=== PATIENT | male | born 1935 | race Caucasian/White ===

== ENCOUNTER 2018-11-18 16:22 | Inpatient (IN) | payer MEDICARE, OTHER, SELFPAY ==
[2018-11-18 16:30] VITALS: BP 146/79; PULSE 75; RESP 16; TEMP 36.7; O2SAT 99; BMI 28.3
--- NOTE | 2018-11-18 16:58 | PCM.HP.STD ---
History of Present Illness Date of Admission: 11/18/18 Chief Complaint: Right obstructing ureteral calculi The patient is a 83 year old male who presented to [facility] with severe right flank pain dehydration also was found to have to require oxygen, I was consulted by the hospital and accepted transfer to [facility] for continued care, he had a CAT scan done demonstrating obstructing stone in the mid right ureter about 4 mm in size causing obstruction and hydronephrosis and pain. He also has a mild dilation of the aorta on CAT scan. He has mild right hydronephrosis. His creatinine was 1.2, but it was reported that he had low urine output at [facility]. Will monitor urine output on admission here. We will also consult hospitalist regarding his oxygenation needs and workup for this. Past Medical History Allergies No Known Allergies Allergy (Verified 11/18/18 16:29) Home Medications: Ambulatory Orders Medication Instructions Recorded Aspirin 325 mg PO DAILY@0800 11/18/18 Folic Acid 1 mg PO DAILY 11/18/18 Krill Oil 500 mg PO DAILY 11/18/18 Lisinopril [Zestril] 5 mg PO DAILY 11/18/18 Multivitamin with Minerals 1 each PO DAILY 11/18/18 [Multiple Vitamin] Surgical History: noncontributory Psychiatric History: No pertinent psych hx Lives: With Family Smoking Status: Never smoker Tobacco Use: Non-smoker Alcohol: None Drugs: None - *Family History Maternal History Items: No pertinent history Review of Systems Constitutional: Denies: Chills, Fever, Weight Change HEENT: Denies: Head Aches, Sinus Congestion, Sinus Drainage Cardiovascular: Denies: Chest Pain, Palpitations Respiratory: Reports: - - Needing oxygen. Denies: Shortness of breath at rest, Sputum production Gastrointestinal: Reports: Abdominal Pain, - - Right abdominal pain. Denies: Nausea, Vomiting Genitourinary: Denies: Dysuria Musculoskeletal: Denies: Joint Pain, Joint Tenderness Skin: Denies: Rash, Wounds Neurological: Denies: Numbness, Tingling, Focal weakness Psychiatric: Denies: Anxiety, Depression, Homicidal Ideations, Suicidal Ideations Hematologic/ Lymphatic: Denies: Easy Bruising, Easy Bleeding VTE Information - Inpt Only VTE Present on Admission: No VTE Mechan Device Prophylaxis: SCD's - Physical Exam General: Alert, Oriented x3, Cooperative HEENT: Atraumatic, PERRLA, EOMI, Normocephalic Neck: Supple, No JVD, Negative Carotid Bruits Lungs: Clear to auscultation, Normal air movement Cardiovascular: Regular rate, No murmurs Abdomen: Bowel Sounds Present, Soft, Non Tender Extremities: No edema, Capillary Refill Less than 3 Seconds Skin: No rashes, No breakdown Musculoskeletal: No Tenderness to Palpation of Joints or Extremities Neurological: Cranial nerves II-XII grossly intact Psych/Mental Status: Normal Affect, Appropriate Assessment/Plan 83-year-old male with obstructing right mid ureteral calculi 4 mm in size with mild right hydronephrosis, also requiring oxygenation currently stable on O2 supplementation. Will consult hospitalist. Plan to taken to surgery tomorrow for stent placement n.p.o. at midnight will do consent, regular diet for now.
[2018-11-18 17:01] VITALS: BMI 28.3
--- NOTE | 2018-11-18 17:01 | HP.PCM_ITS ---
History of Present Illness Date of Admission: 11/18/18 Chief Complaint: Right obstructing ureteral calculi The patient is a 83 year old male who presented to [facility] with severe right flank pain dehydration also was found to have to require oxygen, I was consulted by the hospital and accepted transfer to [facility] for continued care, he had a CAT scan done demonstrating obstructing stone in the mid right ureter about 4 mm in size causing obstruction and hydronephrosis and pain. He also has a mild dilation of the aorta on CAT scan. He has mild right hydronephrosis. His creatinine was 1.2, but it was reported that he had low urine output at [facility]. Will monitor urine output on admission here. We will also consult hospitalist regarding his oxygenation needs and workup for this. Past Medical History Allergies No Known Allergies Allergy (Verified 11/18/18 16:29) Home Medications: Ambulatory Orders Medication Instructions Recorded Aspirin 325 mg PO DAILY@0800 11/18/18 Folic Acid 1 mg PO DAILY 11/18/18 Krill Oil 500 mg PO DAILY 11/18/18 Lisinopril [Zestril] 5 mg PO DAILY 11/18/18 Multivitamin with Minerals 1 each PO DAILY 11/18/18 [Multiple Vitamin] Surgical History: noncontributory Psychiatric History: No pertinent psych hx Lives: With Family Smoking Status: Never smoker Tobacco Use: Non-smoker Alcohol: None Drugs: None - *Family History Maternal History Items: No pertinent history Review of Systems Constitutional: Denies: Chills, Fever, Weight Change HEENT: Denies: Head Aches, Sinus Congestion, Sinus Drainage Cardiovascular: Denies: Chest Pain, Palpitations Respiratory: Reports: - - Needing oxygen. Denies: Shortness of breath at rest, Sputum production Gastrointestinal: Reports: Abdominal Pain, - - Right abdominal pain. Denies: Nausea, Vomiting Genitourinary: Denies: Dysuria Musculoskeletal: Denies: Joint Pain, Joint Tenderness Skin: Denies: Rash, Wounds Neurological: Denies: Numbness, Tingling, Focal weakness Psychiatric: Denies: Anxiety, Depression, Homicidal Ideations, Suicidal Ideations Hematologic/ Lymphatic: Denies: Easy Bruising, Easy Bleeding VTE Information - Inpt Only VTE Present on Admission: No VTE Mechan Device Prophylaxis: SCD's - Physical Exam General: Alert, Oriented x3, Cooperative HEENT: Atraumatic, PERRLA, EOMI, Normocephalic Neck: Supple, No JVD, Negative Carotid Bruits Lungs: Clear to auscultation, Normal air movement Cardiovascular: Regular rate, No murmurs Abdomen: Bowel Sounds Present, Soft, Non Tender Extremities: No edema, Capillary Refill Less than 3 Seconds Skin: No rashes, No breakdown Musculoskeletal: No Tenderness to Palpation of Joints or Extremities Neurological: Cranial nerves II-XII grossly intact Psych/Mental Status: Normal Affect, Appropriate Assessment/Plan 83-year-old male with obstructing right mid ureteral calculi 4 mm in size with mild right hydronephrosis, also requiring oxygenation currently stable on O2 supplementation. Will consult hospitalist. Plan to taken to surgery tomorrow for stent placement n.p.o. at midnight will do consent, regular diet for now.
[2018-11-18] MEDS: 0.9% Normal Saline 1,000 ML 75 ML IV (17:44)
--- NOTE | 2018-11-18 17:54 | PCM.PN.HOSP ---
Subjective: Consult requested by Dr. Song for medical clearance. Is a 83-year-old white male presented to outside hospital with right flank pain. Patient was noted to have a obstructing stone in the right ureter. The stone was measured about 4 mm. Patient did require oxygen at the facility but apparently this was after the patient had received morphine, Percocet and fentanyl. Currently patient feels well and denies any shortness of breath at this time. At home, patient has a fair performance status. He does get short of breath going upstairs but that is been unchanged. Denies any chest pain. Vitals/I&O's: Vital Signs Temp Pulse Resp BP Pulse Ox 36.7 C 75 16 146/79 H 99 11/18/18 16:30 11/18/18 16:30 11/18/18 16:30 11/18/18 16:30 11/18/18 16:30 Oxygen Flow Rate (L/min) 3 Oxygen Delivery Method Nasal Cannula Weight: 74.888 kg Body Mass Index (BMI) 28.3 General: Alert, No apparent distress HEENT: Atraumatic, Normocephalic Oral: Moist Mucosa, No Gingival or Mucosal Lesions/ Ulcerations Neck: No Nodes, Thyroid Normal Size and Texture Lungs: Normal air movement, - - Bibasilar crackles Cardiovascular: Regular rate, Regular Rhythm, Normal S1, Normal S2 Abdomen: Bowel Sounds Present, Soft, Non Tender, Non-Distended, No Hepato-splenomegaly Extremities: No edema, No Calf Tenderness Skin: No rashes, No breakdown Psych/Mental Status: Normal Affect, Appropriate Current Medications Acetaminophen (Tylenol) 500 mg PO Q4H PRN PRN PRN Reason: Pain/Headache Docusate Sodium (Colace) 100 mg PO BID [facility] Folic Acid (Folic Acid) 1 mg PO DAILYCM [facility] Sodium Chloride () 1,000 mls @ 75 mls/hr IV .[id number] [facility] Last Admin: 11/18/18 17:44 Dose: 75 mls/hr Cefazolin Sodium () 1 gm in 50 mls @ 150 mls/hr IV Q8 NICHOLAS Stop: 11/19/18 06:19 Ketorolac Tromethamine (Toradol) 15 mg IV Q6H PRN PRN PRN Reason: pain Stop: 11/20/18 17:04 Lisinopril (Zestril) 5 mg PO DAILY [facility] Multivitamins/Minerals (Multivitamin With Minerals) 1 tablet PO DAILY@0800 [facility] Medical Necessity - Tobacco Use Smoking Status: Never smoker Tobacco Use: Non-smoker Assessment/Plan 1. Respiratory distress, acute: Is likely iatrogenic due to the narcotics he received at the outside hospital Currently, the patient is hemodynamically stable and in no respiratory distress. 2. Right ureteral stone Plan is for the patient tomorrow to have a stent placed by urology. Patient has a fairly good performance status able to engage in greater than 4 METS of activity. Therefore, I feel the patient is low risk to proceed with a low risk procedure tomorrow 3. COPD Stable at this time 4. Hypertension Stable at this time Continue with lisinopril 5. DVT prophylaxis: SCDs Thank you for the consult. The hospitalist team will follow up during the patient's hospitalization. Code Visit Inpatient E&M: 25036 Subs Hosp L2
--- NOTE | 2018-11-18 17:59 | PN_ITS ---
Subjective: Consult requested by Dr. Song for medical clearance. Is a 83-year-old white male presented to outside hospital with right flank pain. Patient was noted to have a obstructing stone in the right ureter. The stone was measured about 4 mm. Patient did require oxygen at the facility but apparently this was after the patient had received morphine, Percocet and fentanyl. Currently patient feels well and denies any shortness of breath at this time. At home, patient has a fair performance status. He does get short of breath going upstairs but that is been unchanged. Denies any chest pain. Vitals/I&O's: Vital Signs Temp Pulse Resp BP Pulse Ox 36.7 C 75 16 146/79 H 99 11/18/18 16:30 11/18/18 16:30 11/18/18 16:30 11/18/18 16:30 11/18/18 16:30 Oxygen Flow Rate (L/min) 3 Oxygen Delivery Method Nasal Cannula Weight: 74.888 kg Body Mass Index (BMI) 28.3 General: Alert, No apparent distress HEENT: Atraumatic, Normocephalic Oral: Moist Mucosa, No Gingival or Mucosal Lesions/ Ulcerations Neck: No Nodes, Thyroid Normal Size and Texture Lungs: Normal air movement, - - Bibasilar crackles Cardiovascular: Regular rate, Regular Rhythm, Normal S1, Normal S2 Abdomen: Bowel Sounds Present, Soft, Non Tender, Non-Distended, No Hepato- splenomegaly Extremities: No edema, No Calf Tenderness Skin: No rashes, No breakdown Psych/Mental Status: Normal Affect, Appropriate Current Medications Acetaminophen (Tylenol) 500 mg PO Q4H PRN PRN PRN Reason: Pain/Headache Docusate Sodium (Colace) 100 mg PO BID [facility] Folic Acid (Folic Acid) 1 mg PO DAILYCM [facility] Sodium Chloride () 1,000 mls @ 75 mls/hr IV .[id number] [facility] Last Admin: 11/18/18 17:44 Dose: 75 mls/hr Cefazolin Sodium () 1 gm in 50 mls @ 150 mls/hr IV Q8 NICHOLAS Stop: 11/19/18 06:19 Ketorolac Tromethamine (Toradol) 15 mg IV Q6H PRN PRN PRN Reason: pain Stop: 11/20/18 17:04 Lisinopril (Zestril) 5 mg PO DAILY [facility] Multivitamins/Minerals (Multivitamin With Minerals) 1 tablet PO DAILY@0800 [facility] Medical Necessity - Tobacco Use Smoking Status: Never smoker Tobacco Use: Non-smoker Assessment/Plan 1. Respiratory distress, acute: * Is likely iatrogenic due to the narcotics he received at the outside hospital * Currently, the patient is hemodynamically stable and in no respiratory distress. 2. Right ureteral stone * Plan is for the patient tomorrow to have a stent placed by urology. * Patient has a fairly good performance status able to engage in greater than 4 METS of activity. * Therefore, I feel the patient is low risk to proceed with a low risk procedure tomorrow 3. COPD * Stable at this time 4. Hypertension * Stable at this time * Continue with lisinopril 5. DVT prophylaxis: SCDs Thank you for the consult. The hospitalist team will follow up during the patient's hospitalization. Code Visit Inpatient E&M: 45034 Subs Hosp L2
[2018-11-18 19:30] VITALS: O2SAT 93
[2018-11-18 22:00] VITALS: BP 126/55; PULSE 73; RESP 18; TEMP 36.7; O2SAT 94
[2018-11-18 22:10] VITALS: PULSE 73; RESP 18; O2SAT 94
[2018-11-18] MEDS: Cefazolin 1 GM/50 ML BAG IV (22:10)
[2018-11-18] MEDS: 0.9% NaCl Peripheral Flush Adult/Peds IV (22:11)
[2018-11-18] MEDS: Docusate Sodium 100 MG Capsule PO (22:20)
[2018-11-19] VITALS (11 sets, daily range): BP systolic 110–141; BP diastolic 59–75; PULSE 55–68; RESP 16–18; TEMP 36.7–37; O2SAT 93–98; BMI 28.3
[2018-11-19] MEDS: Ketorolac 15 MG/ML Vial IV (02:03)
--- NOTE | 2018-11-19 06:00 | EKG12_ITS ---
Test Reason : PRE-OP Blood Pressure : / mmHG Vent. Rate : 063 BPM Atrial Rate : 063 BPM P-R Int : 190 ms QRS Dur : 096 ms QT Int : 402 ms P-R-T Axes : 009 -17 000 degrees QTc Int : 411 ms Normal sinus rhythm Normal ECG Confirmed by IZABEL CAMARA, DOMINGO ([id number]), medical editor BHAVESH JAQUEZ ([id number]) on 11/28/2018 11:58:36 AM Referred By: Francisco Song Confirmed By:DOMINGO PAIZ MD
[2018-11-19] MEDS: Cefazolin 1 GM/50 ML BAG IV (06:08)
[2018-11-19] MEDS: 0.9% Normal Saline 1,000 ML 75 ML IV (06:09)
[2018-11-19 07:06] LABS: Absolute Lymphocyte Count 0.58 X10^3/ul (0.83-4.51); Absolute Neutrophil Count 4.8 X10^3/uL (2.0-7.7); Basophil# 0.01 X10^3/uL; Basophil% 0.2 % (0-1); Eosinophil# 0.04 X10^3/uL; Eosinophils% 0.7 % (0-5); Hematocrit 34.7 % (40-54); Hemoglobin 11.4 g/dl (13.0-16.5); Lymphocyte # 0.58 X10^3/ul (4.0); Lymphocyte % 9.8 % (19-41); Mean Corp Hgb Conc 32.9 g/gl (32-36); Mean Corpuscular Hgb 29.2 pg (27.0-32.0); Mean Corpuscular Volume 88.7 fL (80-94); Mean Platelet Vol. 9.7 fl (6.2-12.0); Monocyte# 0.51 X10^3/uL; Monocyte% 8.6 % (0-10); Neutrophil # 4.79 X10^3/uL (2.7-7.7); Neutrophil % 80.7 % (47-70); Platelet Count 179 K/mm3 (150-450); RBC Distribution Width CV 13.8 % (11.6-14.6); RBC Distribution Width SD 43.8 fl (35.1-43.9); Red Blood Count 3.91 M/mm3 (4.6-6.2); White Blood Count 5.9 K/mm3 (4.4-11.0)
[2018-11-19 07:07] LABS: Anion Gap 6 (5-15); BUN 23 mg/dL (7-18); BUN/Creat Ratio 17.7 RATIO (10-20); Chloride 106 mmol/L (98-107); Differential Indicated SCAN CRITERIA MET; EST Glomerular Filtration Rate 56 mL/min (>60); Est Glom Filt Rate - Afr Amer 68 mL/min (>60); Estimated Creatinine Clearance 36.05 ml/min; Glucose 106 mg/dL (74-106); POSITIVE COUNT NO; POSITIVE DIFFERENTIAL YES; POSITIVE MORPHOLOGY NO; Potassium 4.3 mmol/L (3.5-5.1); Sodium Level 139 mmol/L (136-145)
[2018-11-19 07:51] LABS: Hemoglobin A1c 6.3 % (4.2-6.3)
--- NOTE | 2018-11-19 08:02 | NURSING ---
report called and pt transported down to surgery at this time via bed
[2018-11-19] MEDS: Lidocaine Jelly 2% 20 ML Syringe (URO-JET) 20 APPLIC (08:39)
--- NOTE | 2018-11-19 08:44 | PCM.OPRPT ---
Report of Operation Date of Procedure: 11/19/18 Pre-Operative Diagnosis: Right ureteral calculi causing obstruction Post-Operative Diagnosis: The same Surgery/Procedure Performed:: Cystoscopy and right stent placement Description of Surgical Findings:: 83-year-old male presented to the hospital as a transfer from an outside facility with obstructing stone and shortness of breath requiring oxygen. He is being evaluated by medical service for his oxygen requirements. Today when taken to surgery place a stent on the right side to alleviate the obstruction. The urine has been sent for culture. 83-year-old male taken back to the operating room with smooth induction of MAC local he was placed in dorsolithotomy position the penis testicles are prepped and draped in usual sterile fashion, placed lidocaine jelly into the urethra, I then went into the bladder with a 21 Martiniquais cystoscopy urethroscope the entire length of the urethra is normal the prostate was normal inside the bladder was normal trigone was normal, identified the right ureteral orifice cannulated this with a wire advanced a wire up into the kidney and then over the wire place a stent 6 Martiniquais by 26 cm stent once stent was in good position and pulled the wire to the stent coiled in the kidney and bladder good position I then drained the bladder and the patient's anesthetic is being reversed. Type of Anesthesia:: General Drains: STENT RIGHT - Admit VTE Documentation VTE Present on Admission: No VTE Mechan Device Prophylaxis: SCD's
--- NOTE | 2018-11-19 09:16 | PCA ---
pt off floor
--- NOTE | 2018-11-19 09:43 | PN_ITS ---
Subjective: Patient was admitted with right-sided ureteric colic pain. Was found to have proximal ureteric calculus 4 mm. Patient did not had any fever or chills. No tachycardia or tachypnea. Patient not hypoxic. Patient had right wrist extension after that he is pain-free. Vitals/I&O's: Vital Signs Temp Pulse Resp BP Pulse Ox 98.1 F 64 16 122/59 H 95 11/19/18 09:10 11/19/18 09:10 11/19/18 09:10 11/19/18 09:10 11/19/18 09:10 Oxygen Flow Rate (L/min) 2 Oxygen Delivery Method Room Air Weight: 165 lb 1.6 oz Body Mass Index (BMI) 28.3 Intake and Output for Last 24 Hours 11/17/18 11/18/18 11/19/18 23:59 23:59 23:59 Intake Total 1711 / 1711 Output Total 875 / 875 Balance 836 / 836 General: Alert, Oriented x3, Cooperative HEENT: Atraumatic, PERRLA, EOMI, Normocephalic Neck: Supple, No JVD, Negative Carotid Bruits Lungs: Clear to auscultation, No rhonchi, No wheeze, No rales, Diminished - Air entry is diminished probably chronic from COPD Cardiovascular: Regular rate, Regular Rhythm, Normal S1, Normal S2, No murmurs Abdomen: Bowel Sounds Present, Soft, Non Tender Extremities: No edema, Capillary Refill Less than 3 Seconds Skin: No rashes, No breakdown Musculoskeletal: No Tenderness to Palpation of Joints or Extremities Neurological: Cranial nerves II-XII grossly intact Psych/Mental Status: Normal Affect, Appropriate Laboratory Results 11/19/18 06:26: Sodium 139, Potassium 4.3, Chloride 106, Carbon Dioxide 27.0, Anion Gap 6, BUN 23 H, Creatinine 1.30, Estim Creat Clear Calc 36.05, Est GFR (MDRD) Af Amer 68, Est GFR (MDRD) Non-Af 56 L, BUN/Creatinine Ratio 17.7, Glucose 106, Calcium 8.0 L 11/19/18 06:26: WBC 5.9, RBC 3.91 L, Hgb 11.4 L, Hct 34.7 L, MCV 88.7, MCH 29.2, MCHC 32.9, RDW 13.8, RDW Differential 43.8, Plt Count 179, MPV 9.7, Immature Gran % (Auto) 0.000, Neut % (Auto) 80.7 H, Lymph % (Auto) 9.8 L, Motley % (Auto) 8.6, Eos % (Auto) 0.7, Baso % (Auto) 0.2, Absolute Neuts (auto) 4.8, Absolute Lymphs (auto) 0.58 L, Total Counted Not Reportable 11/19/18 06:26: Hemoglobin A1c 6.3 Current Medications Acetaminophen (Tylenol) 500 mg PO Q4H PRN PRN PRN Reason: Pain/Headache Docusate Sodium (Colace) 100 mg PO BID [facility] Last Admin: 11/18/18 22:20 Dose: 100 mg Folic Acid (Folic Acid) 1 mg PO DAILYCM [facility] Sodium Chloride () 1,000 mls @ 35 mls/hr IV .[id number] [facility] Ketorolac Tromethamine (Toradol) 15 mg IV Q6H PRN PRN PRN Reason: pain Stop: 11/20/18 17:04 Last Admin: 11/19/18 02:03 Dose: 15 mg Lisinopril (Zestril) 5 mg PO DAILY [facility] Multivitamins/Minerals (Multivitamin With Minerals) 1 tablet PO DAILY@0800 [facility] Sodium Chloride () 5 - 15 ml IV UD PRN PRN Reason: SALINE FLUSH Last Admin: 11/18/18 22:11 Dose: 10 ml Medical Necessity - Tobacco Use Smoking Status: Never smoker Tobacco Use: Non-smoker Assessment/Plan This 83-year-old male was admitted with right flank pain radiating to groin. Found to have obstructive stone in the right ureter 4 mm in size. Patient pain was controlled. Patient initially had mild respiratory distress and did require oxygen, 2-3 L/min after he received morphine, Percocet and fentanyl. Currently pulse ox 93% on room air. Hemodynamically stable. Hypoxia corrected and resolved. Patient had cystoscopy and RIGHT URETERIC stent placed for right ureteral stone. COPD is stable . Blood pressure is controlled. Patient is being discharged on Cipro 500 mg twice daily for 3 more days. Labs reviewed and essentially on acceptable limit Follow with PCP in 1-[address] Song as scheduled. Code Visit Inpatient E&M: 62717 Subs Hosp L2
[2018-11-19] MEDS: Lisinopril 5 MG Tablet PO (11:45)
[2018-11-19] MEDS: Multivitamins,Ther W-Minerals Tablet 1 TABLET PO (11:45)
[2018-11-19] MEDS: Folic Acid 1 MG Tablet PO (11:45)
[2018-11-19] MEDS: Docusate Sodium 100 MG Capsule PO (11:45)
--- NOTE | 2018-11-19 12:37 | DCINST_ITS ---
Discharge Diet: Light diet - advance as tolerated Discharge Activity: Return to Normal Activity Call your doctor if your incision/area has: Continuous Slow Oozing, Sudden Increased Bleeding, Increased Pain/ Swelling, Increased Redness, Foul Smelling Discharge, Swelling at the incision site Call your doctor if you observe: Fever of 101 or Higher Allergies/Adverse Reactions: Allergies No Known Allergies Allergy (Verified 11/18/18 16:29) Medications to take at Discharge Aspirin 325 mg PO DAILY@0800 11/18/18 Folic Acid 1 mg PO DAILY 11/18/18 Krill Oil 500 mg PO DAILY 11/18/18 Lisinopril [Zestril] 5 mg PO DAILY 11/18/18 Multivitamin with Minerals [Multiple Vitamin] 1 each PO DAILY 11/18/18 Ciprofloxacin [Cipro] 500 mg PO BID #6 tablet 11/19/18 Ibuprofen 600 mg PO Q6H PRN PRN #14 tablet 11/19/18 The following prescriptions were given: Ibuprofen 600 mg PO Q6H PRN PRN #14 tablet PRN Reason: Pain Ciprofloxacin [Cipro] 500 mg PO BID #6 tablet Primary Care Physician: Care Physician,No Primary [Primary Care Provider] - Test Results: Test results from this visit will be discussed in further detail at your follow- up appointment, if applicable. Please Follow Up With: Francisco Song MD When: please call to make an appointment.
== END 2018-11-19 14:55 | disposition home or self-care (01) | DRG 661 ==
PROVIDERS: Anesthesiology; Admitting Provider Urology; Referring Provider Urology; Visit Provider Urology
PROC: 0T768DZ Dilation of Right Ureter with Intraluminal Device, Via Natural or Artificial Opening Endoscopic (ICD-10-PCS; principal; 2018-11-19 08:20)
DX: N13.2 Hydronephrosis with renal and ureteral calculous obstruction (principal); R06.03 Acute respiratory distress; I10 Essential (primary) hypertension; R09.02 Hypoxemia
CPT/HCPCS: 36415; 76000; 80048; 83036; 85025; 87086; 87088; 93005; J7030; A4216; C1769; C2617

== ENCOUNTER → 2019-01-03 | Outpatient (CLI) | payer MEDICARE, OTHER, SELFPAY ==
[2018-11-19 07:42] VITALS: BMI 28.3
--- NOTE | 2019-01-03 10:36 | CT_ITS ---
STUDY: CT ABDOMEN AND PELVIS WITHOUT CONTRAST REASON FOR EXAM: Male, 83 years old. History of renal stone. RADIATION DOSAGE (If Supplied By Facility): CTDIvol = ( 8.84 ) mGy, DLP = ( 468.28 ) mGycm TECHNIQUE: Transaxial images were obtained from the dome of the diaphragm to the symphysis pubis without oral contrast, and without intravenous contrast. Sagittal and coronal images were reconstructed. Individualized dose optimization techniques were used for this CT. COMPARISON: None. FINDINGS: There are small bilateral pleural effusions. There is a 4 cm x 1.9 cm soft tissue density in the posterior segment of the left lower lobe. This is superimposed on bibasilar scarring. The visualized portions of the heart are within normal limits. Normal liver. Normal gallbladder and extrahepatic biliary system. Normal spleen. Normal pancreas. Normal bilateral adrenal glands. Mild degree of right hydronephrosis and hydroureter. A right-sided double-J stent catheter is seen within the right ureter down to the bladder. There is evidence of a right perinephric and ureteric stranding. A punctate calcification is seen in the midportion of the left kidney. Normal visualized stomach. Normal small intestine. Normal colon. There are surgical clips in the region of the appendix consistent with a prior appendectomy. There is diffuse atherosclerotic calcification of the abdominal aorta and its major visceral branches. There is evidence of a fusiform infrarenal abdominal aortic aneurysm with a transverse dimension of 4.8 cm. There is an IVC filter in place. Normal retroperitoneum. Normal urinary bladder. There are prostatic calcifications. There is a right-sided inguinal hernia containing adipose tissue. There are diffuse degenerative changes of the visualized lumbar spine. CT/Abdomen/Pelvis without Cont IMPRESSION: Small bilateral pleural effusions. Soft tissue mass in the left lower lobe superimposed on scarring. Mild right hydronephrosis and hydroureter with a right-sided double-J stent catheter in place. Fusiform infrarenal abdominal aortic aneurysm with a transverse dimension of 4.8 cm. Electronically Signed: Sánchez Pagan, at 11:20 EDT , Service support ,
== END | disposition home or self-care (01) ==
LOC: CT 10:35
PROVIDERS: Family Provider Family Medicine; PCP Family Medicine; Referring Provider Urology; Visit Provider Urology
DX: N20.0 Calculus of kidney (principal)
CPT/HCPCS: 74176

== ENCOUNTER 2021-06-17 10:43 | Day surgery (SDC) | payer MEDICARE, OTHER, SELFPAY ==
--- NOTE | 2021-06-13 16:18 | EKG12_ITS ---
Test Reason : PRE-OP Blood Pressure : / mmHG Vent. Rate : 068 BPM Atrial Rate : 068 BPM P-R Int : 186 ms QRS Dur : 094 ms QT Int : 400 ms P-R-T Axes : 024 -28 017 degrees QTc Int : 425 ms Normal sinus rhythm Normal ECG Confirmed by SUSANA CAMARA, MARIAM ([id number]), editor house organ BHAVESH JAQUEZ ([id number]) on 06/17/2021 10:33:16 AM Referred By: Ang Tamez Confirmed By:MARIAM MEZA MD
[2021-06-13 17:35] LABS: Anion Gap 5 (5-15); BUN 25 mg/dL (7-18); BUN/Creat Ratio 23.6 RATIO (10-20); Calcium,Total 8.8 mg/dL (8.5-10.1); Chloride 108 mmol/L (98-107); Creatinine, Serum 1.06 mg/dL (0.70-1.30); EST Glomerular Filtration Rate 70 mL/min (>60); Est Glom Filt Rate - Afr Amer 85 mL/min (>60); Glucose 100 mg/dL (74-106); Potassium 4.4 mmol/L (3.5-5.1); Sodium Level 141 mmol/L (136-145)
[2021-06-17] VITALS (8 sets, daily range): BP systolic 134–149; BP diastolic 72–79; PULSE 66–96; RESP 16–71; TEMP 36.1–37.1; O2SAT 87–99; BMI 25.6
--- NOTE | 2021-06-17 | LES_PTH ---
PATIENT: PORTIA STORY LOC: [facility] [place] U#:[id number] AGE/SX: 85/M ROOM: RE06/17/[address]: Dr. Collin Tamez MD : [id number] BED: DIS: 06/17/2021 SPEC #: [id number] RECD: 06/17/21 15:19 STATUS: KALPESH CATES #: [id number] FRANCOISE: 06/17/21 00:[address]: Collin Tamez DEPT: SURGICAL PATHOLOGY RECD BY: Margarita Edmonds ENTERED: 06/17/21 15:46 SP TYPE: Lesion OTHR DR: Dr. Cinthya Wu MD Tissues: Skin of external ear, NOS Procedures: Frozen Section (charge) Surgery Specimen Level IV HEADER OPERATION: Excision lesion right ear, full thickness skin graft PRE-OP DIAGNOSIS: Neoplasm of right ear TISSUE SUBMITTED: Right ear mass, suture ? superior, frozen section FROZEN SECTION DIAGNOSIS Right ear lesion, excisional biopsy: Basal cell carcinoma, completely excised. SJ:rg 06/17/2021 MICROSCOPIC DIAGNOSIS Right ear lesion, excisional biopsy: Basal cell carcinoma, completely excised. Focal acanthosis mild actinic keratosis and solar elastosis. SJ:rg 06/18/2021 COMMENT Case has been reviewed in consultation with Dr. Warren who concurs with the above diagnosis. IDC:AM MICROSCOPIC DESCRIPTION Slides are reviewed. GROSS DESCRIPTION Received fresh for frozen section diagnosis labeled with the patient's name is a specimen designated right ear lesion. The specimen consists of an ovoid to chato-shaped piece of moreland-white skin measuring 2 x 1.5 x 0.1 cm. A central area of ulceration is noted measuring 0.7 cm in greatest dimension. The specimen is oriented by a stitch at superior margin, presumed to be 12 o?clock. The specimen is inked as follows: 12 to 3 o?clock - black, 3 to 6 o?clock - blue, 6 to 9 o?clock - green and 9 to 12 o?clock - yellow. The specimen is serially sectioned and submitted entirely for frozen section diagnosis in two cassettes. / ADAMA:reilly 06/17/21 TC:0 CPT: 81043, 97560, 09293
[2021-06-17] MEDS: Lactated Ringers 1,000 ML 100 ML IV ×2 (11:23→15:31)
--- NOTE | 2021-06-17 14:42 | PCM.DC ---
Discharge Instructions Diet Discharge Diet: No restrictions Activity Discharge Activity: Return to Normal Activity Dressing / Incision Call your doctor if your incision/area has: Increased Pain/ Swelling Additional Dressing/Incision Instructions:: keep bolster and ear dry. hold on to the mupirocin ointment given as you will use that after the bolster is removed in 1 week. Follow Up Care Please Follow Up With: Ang Tamez MD When: 1 week Test Results: Test results from this visit will be discussed in further detail at your follow-up appointment, if applicable. Discharge Plan Admission Attending Provider: Ang Tamez Primary Care Provider: Cinthya Wu Discharge Orders/Prescriptions Prescriptions: No Action atorvastatin 40 mg tablet 40 mg PO DAILY RF: 0 clopidogrel [Plavix] 75 mg tablet 75 mg PO DAILY RF: 0 ipratropium bromide 21 mcg (0.03 %) spray,non-aerosol 2 spray INTRANASAL BID RF: 0 Other Ambulatory Orders: 12 Lead EKG (Routine) Location: None Selected Ordered By: Dr. Ang Tamez Disposition Discharge Orders: Discharge Patient (Routine); Ordered 06/17/21 Ordered By: Dr. Ang Tamez
--- NOTE | 2021-06-17 14:43 | PCM.OPRPT ---
Problems Associated Problem List Diagnoses (1) Mass of right ear auricle: Report of Operation Date of Procedure: 06/17/21 Pre-Operative Diagnosis: 1. right ear mass Post-Operative Diagnosis: 1. right ear mass Surgery/Procedure Performed:: 1. excision right ear mass, 1.5cm 2. full thickness skin graft to right ear defect, 2.5 x 2.5 cm Type of Anesthesia: General Description of Procedure: on the day of the procedure, after appropriate informed consent was obtained, the patient was brought to the operating room and placed in supine position on the operating table. he was placed under general endotracheal anesthesia by the anesthesiologist. the right ear was injected with lidocaine/epinephrine and prepped/draped in sterile fashion along with the right inferior neck. a hughes blade was used to excise the superior helical defect just posterior to the superior quan. 1.5cm lesion. this was sent as a frozen section and returned basal cell carcinoma. 4mm margins were taken and the total defect was 2.5 x 2.5 cm. the margins were reported negative. the defect borders were undermined in all directions. an elliptical incision was made transversely in the right lower neck, after it was injected with lidocaine/epinephrine. a full thickness skin graft was taken with a 15 blade and an iris scissor. hemostasis was achieved with the bipolar. the neck graft donor site was undermined and closed with 4-0 vicryl and 5-0 fast gut. the graft was thinned and trimmed to fit the auricular defect. this was pie-crusted and sutured with 4-0 chromic and 5-0 fast gut. through and through sutures were placed. a bolster was placed. he was awoken from anesthesia and transferred to the PACU in stable condition.
[2021-06-17] MEDS: Lidocaine 1% /Epi 1:100 (50ml) 50 ML VIAL (15:09)
[2021-06-17] MEDS: Mupirocin Ointment 22gm Tube 1 APPLIC (16:05)
== END 2021-06-17 18:05 | disposition home or self-care (01) ==
LOC: SDC 10:44 → AC 10:59
PROVIDERS: PCP Family Medicine; Referring Provider Otolaryngology; Visit Provider Otolaryngology
PROC: (CPT 11642; principal; 2021-06-17 12:20)
DX: C44.212 Basal cell carcinoma of skin of right ear and external auricular canal (principal); J44.9 Chronic obstructive pulmonary disease, unspecified; I25.2 Old myocardial infarction; Z86.73 Personal history of transient ischemic attack (TIA), and cerebral infarction without residual deficits; Z79.02 Long term (current) use of antithrombotics/antiplatelets; Z79.899 Other long term (current) drug therapy
CPT/HCPCS: 00300; 11642; 15260; 36415; 80048; 88305; 88331; 93005; J7120; J2405